=== PATIENT | male | born 1950 | race Caucasian/White ===

== ENCOUNTER → 2024-05-09 | Outpatient (CLI) | payer MEDICARE | LOC: M RAD 12:00 | PROVIDERS: ATTEND Internal Medicine Sports Medicine | DX: M75.81 Other shoulder lesions, right shoulder (principal); M25.411 Effusion, right shoulder ==

== ENCOUNTER 2025-06-14 20:19 | Emergency (ER) | payer MEDICARE ==
[~2025-06-14] VITALS: Ht 188 cm; Wt 104.1 kg
[2025-06-14 20:21] VITALS: BP 160/73; TEMP 98.7; O2SAT 99
== END 2025-06-15 01:42 | disposition left against medical advice (07) ==
LOC: M ED 20:19
DX: Z53.21 Procedure and treatment not carried out due to patient leaving prior to being seen by health care provider (principal)